=== PATIENT | male | born 1990 | race Caucasian/White ===

== ENCOUNTER → 2017-04-13 | Outpatient (CLI) | payer OTHER ==
--- NOTE | 2017-04-19 12:07 | CPEEG ---
[f rep st] ELECTROENCEPHALOGRAM DATE OF STUDY: 04/11/2017 DATE OF INTERPRETATION: 04/19/2017. INTERPRETATION: Normal EEG during wakefulness and drowsiness. There were no potentially epileptoge josefina abnormalities present in the recording. REPORT: This EEG contains 10 Hz alpha to the posterior head regions. There was no abnormal activat ion at rest, during hyperventilation, or photic stimulation. The patient intermittently became drow sy during the study. The patient had drowsy bursts composed of diffuse theta frequency activity. T his is a normal drowsy pattern. There was no abnormal activation during drowsiness or during times of arousal. /[id number]/[id number]
== END ==
LOC: FCPNEURO 10:55
PROVIDERS: ATTEND Psychiatry & Neurology Neurology
DX: R40.20 Unspecified coma (principal); Z04.8 Encounter for examination and observation for other specified reasons